=== PATIENT | male | born 1970 | race African-American/Black ===

== ENCOUNTER 2023-03-05 07:31 | Emergency (ER) | payer SELFPAY ==
[2023-03-05] MEDS ORDERED: Acetaminophen 500 MG Tab PO ONE (07:46)
[2023-03-05] MEDS ORDERED: Lidocaine 2% Viscous Solution 15 ML UD PO ONE (07:46)
[2023-03-05] MEDS ORDERED: Ibuprofen 800 MG Tab PO ONE (07:46)
== END 2023-03-05 08:20 | disposition home or self-care (01) ==
LOC: FB.ED 07:31
DX: K04.7 Periapical abscess without sinus (principal); F17.210 Nicotine dependence, cigarettes, uncomplicated; Z91.013 Allergy to seafood
CPT/HCPCS: 99282; A9270-GY